=== PATIENT | female | born 1975 | race Caucasian/White ===

== ENCOUNTER 2018-01-21 15:12 | Emergency (ER) | payer OTHER ==
[~2018-01-21] VITALS: Ht 170.2 cm; Wt 80.7 kg
[2018-01-21 16:09] LABS: BASOPHILS # (AUTO) 0.09 x10^3/uL (0-0.1); BASOPHILS % (AUTO) 1 % (0-1); EOSINOPHILS # (AUTO) 0.14 x10^3/uL (0-0.4); EOSINOPHILS % (AUTO) 1 % (1-7); LYMPHOCYTES # (AUTO) 3.39 x10^3/uL (1-3.4); LYMPHOCYTES % (AUTO) 29 % (22-44); MD NO; MEAN CORPUSCULAR VOLUME 85.2 fL (80-100); MEAN PLATELET VOLUME 8.1 fL (7.4-10.4); MONOCYTES # (AUTO) 0.75 x10^3/uL (0.2-0.8); MONOCYTES % (AUTO) 6 % (2-9); NEUTROPHILS % (AUTO) 63 % (42-75); PLATELET COUNT 363 x10^3/uL (130-400); RED BLOOD COUNT 4.71 x10^6/uL (3.82-5.3); RED CELL DISTRIBUTION WIDTH 12.5 % (9.6-15.2)
[2018-01-21 16:23] LABS: ALBUMIN 3.5 g/dL (3.4-5.0); ANION GAP 7 mmol/L (5-15); CALCIUM 8.7 mg/dL (8.5-10.1); CHLORIDE 107 mmol/L (98-107)
[2018-01-21 16:25] LABS: MICROSCOPIC NOT IND
[2018-01-21 16:28] LABS: CULTURE INDICATED? NO
[2018-01-21 16:29] LABS: ALANINE AMINOTRANSFERASE 33 U/L (12-78); ALKALINE PHOSPHATASE 80 U/L (45-117); BILIRUBIN,TOTAL 0.5 mg/dL (0.2-1.0); CREATININE 0.79 mg/dL (0.55-1.02); TOTAL PROTEIN 7.8 g/dL (6.4-8.2)
[2018-01-21] MEDS ORDERED: KETOROLAC 30 MG/1 ML IVPush ONE (16:30)
[2018-01-21] MEDS ORDERED: ONDANSETRON 2MG/ML, 2ML IVPush ONE (16:30)
[2018-01-21] MEDS ORDERED: SODIUM CHLORIDE FLUSH 10ML SYR IVF ONE (16:30)
[2018-01-21] MEDS ORDERED: ONDANSETRON 2MG/ML, 2ML ONE (16:35)
[2018-01-21] MEDS ORDERED: KETOROLAC 30 MG/1 ML ONE (16:35)
[2018-01-21 20:28] VITALS: BP 114/71
== END 2018-01-21 20:34 | disposition home or self-care (01) ==
LOC: ED 17:17
DX: R10.11 Right upper quadrant pain (principal); Z98.51 Tubal ligation status
CPT/HCPCS: 36415; 74176; 76700; 80053; 81003; 83690; 84703; 85025; 96374; 96375; 99285; J1885; J2405